=== PATIENT | male | born 1935 | race Caucasian/White ===

== ENCOUNTER 2016-07-08 17:02 | Emergency (ER) ==
[2016-07-08 17:15] VITALS: BP 125/72; TEMP 100.3; BMI 31.5
--- NOTE | 2016-07-08 17:22 | ED.PDOC ---
General ED Provider: Dr. FLORINA PIMENTEL JR Chief Complaint: Fever Stated Complaint: FEVER WITH SORE THROAT, COUGH. EVERY BONE IN MY BODY JUST HURTS. [ End ]SORE THROAT WITH FEVER 100.3 73 20 92% 125/72 Time Seen by Physician: 17:20 Mode of Arrival: Walk-In Information Source: Patient, Family Exam Limitations: No limitations Primary Care Provider: PRINCESS DRISCOLL Nursing and Triage Documentation Reviewed and Agree: No Review of Systems - Review Of Systems Constitutional: Reports: Fever, Malaise, Weakness Eyes: Reports: No symptoms Ears, Nose, Mouth, Throat: Reports: Throat pain Respiratory: Reports: Cough Cardiac: Reports: No symptoms GI: Reports: No symptoms : Reports: No symptoms Musculoskeletal: Reports: No symptoms Skin: Reports: No symptoms Neurological: Reports: No symptoms Endocrine: Reports: No symptoms Hematologic/Lymphatic: Reports: No symptoms All Other Systems: Other Past Medical History - Past Medical History Endocrine: Reports: DM 2 Cardiovascular: Reports: [place] Respiratory: Reports: None Hematological: Reports: None Gastrointestinal: Reports: GERD Genitourinary: Reports: None Neuro/Psych: Reports: None Musculoskeletal: Reports: None Cancer: Reports: None - Surgical History General Surgical History: Reports: 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) - Family History Family History: Reports: Other (several family menbers ill) - Social History Smoking Status: Former smoker Hx Substance Use: No Alcohol Screening: Occasionally - Immunizations Tetanus Shot up to Date: Yes Physical Exam - Physical Exam Appearance: Ill-appearing, Obese Ill-appearing: Moderate Pain Distress: Moderate Eyes: MARSHA, EOMI, Conjunctiva clear ENT: Erythema Neck: Supple Respiratory: Airway patent, Breath sounds diminished, Crackles, Rhonchi Cardiovascular: RRR, Pulses normal, No rub, No murmur GI/: Soft, Nontender, No masses, Bowel sounds normal, No Organomegaly Musculoskeletal: Normal strength, ROM intact, No edema, No calf tenderness Skin: Warm, Dry, Normal color Neurological: Sensation intact, Motor intact, Reflexes intact, Cranial nerves intact, Alert, Oriented Psychiatric: Affect appropriate, Mood appropriate Interpretation - Radiology Interpretation Radiology Interpretation By: ED Physician Radiology Results: Negative Exam Interpreted: CXR Critical Care Note - Critical Care Note Total Time (mins): 0 Course - Course Hematology/Chemistry: 07/08/16 17:40 07/08/16 17:40 Vital Signs: Temp Pulse Resp BP Pulse Ox 07/08/16 17:04 100.3 F H 73 20 125/72 92 L Departure - Departure Time of Disposition: 18:36 Disposition: HOME SELF-CARE Discharge Problem: Fever, URTI (acute upper respiratory infection) Instructions: Upper Respiratory Infection (ED) Condition: Good Pt referred to PMD for follow-up: Yes Additional Instructions: Keflex four times a day for infection Robitussin AC as needed for cough recheck PMD one week return if worse if fever over 101.0 Prescriptions: Cephalexin [Keflex] 500 mg PO QID #40 capsule Guaifenesin/Codeine Phosphate [Robitussin AC Syrup] 10 ml PO Q6H PRN #240 ml PRN Reason: Cough Allergies/Adverse Reactions: Allergies No Known Allergies Allergy (Unverified 01/06/13 14:09) Home Medications: Ambulatory Orders Aspirin [Aspirin Chewable] 81 mg PO DAILYWM 01/10/13 Furosemide [Lasix Tab] 40 mg PO QDAC 01/10/13 Metoprolol Tartrate [Lopressor] 25 mg PO DAILY 01/10/13 Multivitamin [Multi-Vitamin Daily] 1 each PO DAILY 01/10/13 Omeprazole [Prilosec] 20 mg PO QDAC 01/10/13 Potassium Chloride [K-Dur] 20 meq PO DAILY 01/10/13 Pravastatin Sodium [Pravachol] 40 mg PO DAILY 01/10/13 Terazosin HCl [Hytrin] 5 mg PO DAILY 01/10/13 Vit C/E/Zn/Coppr/Lutein/Zeaxan [Ocuvite Lutein Capsule] 1 each PO DAILY Metformin HCl 07/30/15 Cephalexin [Keflex] 500 mg PO QID #40 capsule 07/08/16 Guaifenesin/Codeine Phosphate [Robitussin AC Syrup] 10 ml PO Q6H PRN #240 ml 01/14
[2016-07-08 17:47] LABS: BASOPHILS % (AUTO) 0.5 % (0.0-3.0); EOSINOPHILS % (AUTO) 0.3 % (0.0-7.0); HEMATOCRIT 44.3 % (42.0-52.0); HEMOGLOBIN 15.1 g/dl (14.0-18.0); IMMATURE GRANULOCYTE % (AUTO) 0.3 % (0.0-5.0); LYMPHOCYTES # (AUTO) 0.5 K/uL (0.60-3.4); LYMPHOCYTES % (AUTO) 8.4 (10.0-50.0); MEAN CORPUSCULAR HEMOGLOBIN 30.9 pg (27.0-31.0); MEAN CORPUSCULAR HGB CONC 34.1 (31.8-35.4); MEAN CORPUSCULAR VOLUME 90.6 fl (80.0-94.0); MONOCYTES # (AUTO) 0.7 K/uL (0.4-2.0); MONOCYTES % (AUTO) 11.7 (0-10); NEUTROPHILS # (AUTO) 4.5 K/ul (2.0-6.9); NEUTROPHILS % (AUTO) 78.8; PLATELET COUNT 153 10^3/uL (140-440); RED BLOOD COUNT 4.89 10^6/ul (4.70-6.10); WHITE BLOOD COUNT 5.73 K/ul (4.2-10.2)
[2016-07-08 17:48] LABS: FLU INTERNAL QC INTERNAL QC VALID; RAPID FLU A NEGATIVE (NEGATIVE); RAPID FLU B NEGATIVE (NEGATIVE)
[2016-07-08 18:05] LABS: ALBUMIN/GLOBULIN RATIO 1.48; ANION GAP 16.8; BILIRUBIN,TOTAL 0.65 mg/dL (0.00-1.20); CALCIUM 8.8 mg/dL (8.2-10.2); POTASSIUM 3.8 mmol/L (3.5-5.1); TOTAL PROTEIN 6.7 g/dL (5.8-8.1)
--- NOTE | 2016-07-09 04:37 | DI ---
EXAM: PA and lateral views of the chest. HISTORY: Cough. FINDINGS: The bony structures are unremarkable. There are multiple sternotomy wires. The cardiac silhouette and pulmonary vasculature are within normal limits. The costophrenic angles are clear. No infiltrate or consolidation. Impression: No acute cardiopulmonary disease.
== END 2016-07-08 18:54 | disposition home or self-care (01) ==
LOC: ED 17:02
DX: J06.9 Acute upper respiratory infection, unspecified (principal); R50.9 Fever, unspecified; Z79.899 Other long term (current) drug therapy; E11.9 Type 2 diabetes mellitus without complications; I25.2 Old myocardial infarction; Z95.1 Presence of aortocoronary bypass graft
CPT/HCPCS: 36415; 80053; 85025; 87040; 87651; 87804; 87880; 99283

== ENCOUNTER 2018-07-26 07:06 | Day surgery (SDC) ==
[2018-07-26] MEDS ORDERED: LIDOCAINE 1% 20 ML MDV ID STA (07:25)
[2018-07-26 07:35] VITALS: TEMP 96.8
[2018-07-26] MEDS ORDERED: DIPRIVAN 20 ML VIAL IVP ONE (08:50)
[2018-07-26 10:59] VITALS: BP 135/56
--- NOTE | 2018-07-27 07:35 | OP ---
INDICATIONS FOR PROCEDURE: 83-year-old gentleman presents for colonoscopy exam. He has a history of adenomatous polyps with the last colonoscopy over five years ago. MEDICATIONS: SEE ANESTHESIA NOTES. PROCEDURE: COLONOSCOPY, SNARE POLYPECTOMY. REPORT: The risks, benefits, alternatives and limitations were discussed in detail with the patient. Informed consent was obtained. After adequate sedation was achieved, digital rectal exam revealed good tone, no masses. The colonoscope was introduced into the rectum and advanced under direct visual guidance to the cecum. The cecum was identified by the appendiceal orifice and IC valve. I then slowly withdrew the scope in a circumferential manner examining the mucosa quite carefully. I looked on the proximal and distal side of folds and flexures as best as possible. I was able to retroflex the scope in the right colon as well as the left colon to increase visualization. In the transverse colon there is a 5 or 6 mm semi sessile polyp. I removed this by snare technique. In the rectum there are three benign appearing polyps ranging in size from 4 to 6 mm and semi sessile. I removed these three polyps by snare technique. In the sigmoid there are multiple small mouth diverticula scattered throughout. No other abnormaliteis were noted. The prep was good. The withdrawal time was 11 minutes and 30 seconds. The patient tolerated the procedure well with stable vital signs and pulse oximetry throughout. IMPRESSION: 1. FOUR (4) SMALL POLYPS REMOVED ABOVE. 2. DIVERTICULOSIS IN THE SIGMOID AREA. RECOMMENDATIONS: 1. High fiber diet. 2. Office visit as needed. 3. Await pathology results. 4. Future surveillance colonoscopies are not recommended, recommend colonoscopies on an as needed only basis. CC: DR. PRINCESS COREA
== END 2018-07-26 10:20 | disposition home or self-care (01) ==
LOC: SURG 07:06
PROVIDERS: ATTEND Internal Medicine Gastroenterology
DX: Z86.010 Personal history of colon polyps (principal); K57.90 Diverticulosis of intestine, part unspecified, without perforation or abscess without bleeding; D12.3 Benign neoplasm of transverse colon; K62.1 Rectal polyp